=== PATIENT | male | born 1960 | race African-American/Black ===

== ENCOUNTER 2019-05-04 05:12 | Observation (INO) | payer OTHER ==
[2019-05-04] MEDS ORDERED: Acetaminophen 500 MG TAB ONE (06:28)
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
[2019-05-04] MEDS ORDERED: Acetaminophen 325 MG TAB PO PRN (07:16)
[2019-05-04] MEDS ORDERED: Amlodipine 10 MG TAB PO SCH (07:30)
[2019-05-04] MEDS ORDERED: Ketorolac Tromethamine 30 MG/ML VIAL IVP SCH (07:30)
[2019-05-04 08:34] VITALS: BMI 23.7
[2019-05-04] MEDS ORDERED: Lactated Ringer's 1,000 ML IV SCH (09:15)
[2019-05-04 10:01] LABS: Hemoglobin A1c 4.9 % (4.0-6.0)
[2019-05-04 10:15] LABS: ALT (SGPT) 120 U/L (8-55); AST (SGOT) 105 U/L (5-34); Albumin 3.7 g/dL (3.5-5.0); Alkaline Phosphatase 82 U/L (40-150); Anion Gap 11 mmol/L (10-20); BUN (Urea Nitrogen) 12 mg/dL (8.4-25.7); Bilirubin, Total 0.9 mg/dL (0.2-1.2); Calc. Creatinine Clearance 104 mL/min (70-130); Calcium 9.9 mg/dL (7.8-10.44); Carbon Dioxide 26 mmol/L (22-29); Cardiac Risk 2.8 (Less than 4.5); Chloride 103 mmol/L (98-107); Cholesterol 116 mg/dl (< 200 Desired); Estimated GFR-MDRD Greater than 90; Glucose 121 mg/dL (70-105); HDL Cholesterol 42 mg/dL (>60 Neg Risk); LDL Cholesterol, Calculated 55 mg/dL; Potassium 3.5 mmol/L (3.5-5.1); Protein, Total 6.7 g/dL (6.0-8.3); Sodium 136 mmol/L (136-145); Triglycerides 96 mg/dL (Less than 150)
[2019-05-04 10:16] LABS: Troponin I Less than 0.010 ng/mL (< 0.028)
[2019-05-04] MEDS ORDERED: Ketorolac Tromethamine 30 MG/ML VIAL IVP PRN (12:00)
[2019-05-04 12:04] VITALS: BP 137/71; TEMP 97.8
[2019-05-04 13:15] LABS: Troponin I Less than 0.010 ng/mL (< 0.028)
--- NOTE | 2019-05-05 14:18 | DIS ---
DATE OF ADMISSION: 05/04/2019 DATE OF DISCHARGE: 05/04/2019 RESIDENT: Jordyn Rangel DO ADMITTING ATTENDING: Rony Jefferson MD DISCHARGE ATTENDING: Rony Jefferson MD CONSULTS: None. PROCEDURES: None. PRIMARY DIAGNOSES: 1. Hypertensive urgency secondary to medication noncompliance. 2. Atypical chest pain. 3. Tension headache. SECONDARY DIAGNOSIS: Chronic hepatitis C. DISCHARGE MEDICATIONS: 1. Amlodipine 10 mg p.o. daily. 2. Metoprolol 12.5 mg p.o. daily. 3. Hydrochlorothiazide 25 mg p.o. daily. DISCONTINUED MEDICATIONS: None. HISTORY OF PRESENT ILLNESS: A 58-year-old , incarcerated male, presented to the ER after transfer from [place] for chest pain and headache. However, at the time of our team's history, the patient denied any episode of chest pain. He stated that he went to the ER for headache and noted one episode of feeling like his heart skips a beat. Since being in the [facility], he had not been on any blood pressure medications for at least 6 days. The patient was admitted for hypertensive urgency. Blood pressure was lowered to normal range. Heart score was 3, EKG was unremarkable and troponins were negative. No indication for stress test. The patient's symptoms improved and patient was discharged back to [facility] with prescriptions for his blood pressure medication. Compliance was urged. DISPOSITION: Stable. DISCHARGE INSTRUCTIONS: 1. Location: [facility]. 2. Diet: Heart healthy. 3. Activity: As tolerated. 4. Followup: Followup with PCP within 3 days. Job ID: [id number]
--- NOTE | 2019-05-10 13:11 | EKG ---
Test Reason : Blood Pressure : / mmHG Vent. Rate : 057 BPM Atrial Rate : 057 BPM P-R Int : 216 ms QRS Dur : 080 ms QT Int : 434 ms P-R-T Axes : 056 -28 002 degrees QTc Int : 422 ms Sinus bradycardia with 1st degree A-V block Inferior-posterior infarct , age undetermined Abnormal ECG Confirmed by CARLOTTA MAGALLANES DO ([id number]), associate entertainment editor FRANCISCO J THRASHER ([id number]) on 05/10/2019 1:11:15 PM Referred By: Confirmed By:CARLOTTA MAGALLANES DO
== END 2019-05-04 15:45 ==
LOC: ERS 05:12 → EEVIPCON 05:12 → 2SW 08:27
PROVIDERS: ADMIT Family Medicine; ATTEND Family Medicine
DX: I16.0 Hypertensive urgency (principal); R07.89 Other chest pain; G44.209 Tension-type headache, unspecified, not intractable; B18.2 Chronic viral hepatitis C; I10 Essential (primary) hypertension; I44.0 Atrioventricular block, first degree; Z79.899 Other long term (current) drug therapy; Z91.14 Patient's other noncompliance with medication regimen
CPT/HCPCS: 36415; 80053; 80061; 83036; 84443; 84484; 93005; 96361; 96374; G0378; J1885